=== PATIENT | female | born 1945 | race Caucasian/White ===

== ENCOUNTER 2019-12-20 10:23 | Observation (INO) | payer MEDICARE ==
[~2019-12-20] VITALS: Ht 152.4 cm; Wt 59.4 kg
[2019-12-20] MEDS ORDERED: SODIUM CHLORIDE FLUSH 10ML SYR IVF ONE (11:00)
[2019-12-20 11:21] LABS: BASOPHILS # (AUTO) 0.02 x10^3/uL (0-0.1); BASOPHILS % (AUTO) 0 % (0-1); EOSINOPHILS # (AUTO) 0.03 x10^3/uL (0-0.4); EOSINOPHILS % (AUTO) 0 % (1-7); LYMPHOCYTES % (AUTO) 27 % (22-44); MD NO; MEAN CORPUSCULAR HEMOGLOBIN 28.9 pg (27.0-34.8); MEAN CORPUSCULAR HGB CONC 32.4 g/dL (32.4-35.8); MEAN CORPUSCULAR VOLUME 89.2 fL (80-100); MONOCYTES # (AUTO) 0.55 x10^3/uL (0.2-0.8); MONOCYTES % (AUTO) 9 % (2-9); NEUTROPHILS # (AUTO) 4.11 x10^3/uL (1.8-6.8); NEUTROPHILS % (AUTO) 64 % (42-75); PLATELET COUNT 319 x10^3/uL (130-400); RED BLOOD COUNT 4.48 x10^6/uL (3.82-5.3); RED CELL DISTRIBUTION WIDTH 14.4 % (9.6-15.2)
--- NOTE | 2019-12-20 11:22 | NUR ---
PT BIB SON FOR EXPRESSIVE APHASIA STARTING AT [facility] 0100AM LAST NIGHT. PT HAS HX OF RECENT STOKE X1 MONTH AGO. PT PROTECTING OWN AIRWAY WELL, A&Ox4, VSS. NO UNILATERAL WEAKNESS NOTED, STEADY GAIT. IV STARTED, LABS DRAWN. PT PLACED ON MONITORS. WILL COLLECT URINE WHEN PT ABLE TO URINATE. CONT TO MONITOR.
[2019-12-20 11:31] LABS: ALBUMIN 3.4 g/dL (3.4-5.0); ANION GAP 6 mmol/L (5-15); CALCIUM 8.9 mg/dL (8.5-10.1); CHLORIDE 110 mmol/L (98-107); CREATININE 0.82 mg/dL (0.55-1.02)
[2019-12-20 11:35] LABS: TROPONIN I < 0.015 ng/mL (0.000-0.045)
--- NOTE | 2019-12-20 12:07 | NUR ---
PT RESTING IN BED, FAMILY AT BEDSIDE. DENIES NEEDS. AWAITING CT. PT REMAINS ON MONITORS. PT AWARE NEEDS U/A. CONT TO MONITOR.
--- NOTE | 2019-12-20 13:03 | NUR ---
PT UP TO RR, URINE SAMPLE COLLECTED AND SENT TO LAB. PT AWARE OF POC, TO BE [facility] ADMIT. PT REMAINS ON MONITORS, NO DISTRESS NOTED. NO CHANGE TO NEURO STATUS. CONT TO MONITOR.
--- NOTE | 2019-12-20 13:13 | NUR ---
REPORT GIVEN TO NIECY LOPEZ. PT TO TRANSFER TO [facility] [id number].
[2019-12-20 13:20] LABS: MICROSCOPIC INDICATED
[2019-12-20] MEDS ORDERED: CEFTRIAXONE PMX 1GM/50ML 50 ML IV SCH (14:00)
[2019-12-20] MEDS ORDERED: DOCUSATE 100 MG CAPSULE PO PRN (14:00)
[2019-12-20] MEDS ORDERED: SODIUM CHLORIDE FLUSH 10ML SYR IVF PRN (14:00)
[2019-12-20] MEDS ORDERED: ACETAMINOPHEN 650 MG/20.3 ML UDC PO PRN (14:00)
[2019-12-20] MEDS ORDERED: POLYETHYLENE GLYCOL 17 GM PACKET PO PRN (14:00)
[2019-12-20] MEDS ORDERED: LABETALOL 5MG/ML, 20ML IV PRN (14:00)
[2019-12-20] MEDS ORDERED: ONDANSETRON ODT 4 MG PO PRN (14:00)
[2019-12-20] MEDS ORDERED: ONDANSETRON 2MG/ML, 2ML IVPush PRN (14:00)
[2019-12-20 15:19] VITALS: BP 108/66
[2019-12-20] MEDS ORDERED: OMNIPAQUE 350 MG/ML, 75ML BOTTLE ONE (16:30)
[2019-12-20 16:33] VITALS: BP 118/71
[2019-12-20 18:07] VITALS: BP 110/75
[2019-12-20 19:44] VITALS: BP 115/60
[2019-12-20 20:07] VITALS: BP 114/68
[2019-12-20] MEDS ORDERED: ATORVASTATIN 40 MG TABLET PO SCH (21:00)
[2019-12-20 22:21] VITALS: BP 120/71
[2019-12-20] MEDS ORDERED: MELATONIN 5 MG TABLET PO ONE (22:30)
[2019-12-21] VITALS (8 sets, daily range): BP systolic 94–121; BP diastolic 59–74
[2019-12-21 05:47] LABS: CHOL/HDL RATIO 2.5; LDL/HDL RATIO 1.3 (0.5-3.0)
[2019-12-21] MEDS ORDERED: ASPIRIN 81 MG TABLET CHEW PO/NG SCH (09:00)
[2019-12-21] MEDS ORDERED: CLOPIDOGREL 75 MG TABLET PO SCH (09:00)
[2019-12-21 11:31] LABS: HCT (SEDRATE) 37.8 % (34.6-47.8)
[2019-12-21] MEDS ORDERED: CLOP75TA PO (14:09)
[2019-12-21] MEDS ORDERED: ASPI-515 PO/NG (14:09)
[2019-12-21] MEDS ORDERED: ATOR40TA78 PO (14:09)
[2019-12-21] MEDS ORDERED: CEFD300C37 PO (14:10)
== END 2019-12-21 16:55 | disposition home or self-care (01) ==
LOC: ED 11:03 → INTOOBSV 12:43 → EDIP 12:43 → 4WST 14:32
PROVIDERS: ADMIT Family Medicine; ATTEND Family Medicine
DX: R47.01 Aphasia (principal); N39.0 Urinary tract infection, site not specified; G81.94 Hemiplegia, unspecified affecting left nondominant side; Q21.1 Atrial septal defect; R29.810 Facial weakness; B96.89 Other specified bacterial agents as the cause of diseases classified elsewhere; E78.5 Hyperlipidemia, unspecified; H53.40 Unspecified visual field defects; H54.7 Unspecified visual loss; I67.2 Cerebral atherosclerosis; J45.909 Unspecified asthma, uncomplicated; R73.03 Prediabetes; Z79.899 Other long term (current) drug therapy; Z86.73 Personal history of transient ischemic attack (TIA), and cerebral infarction without residual deficits
CPT/HCPCS: 36415; 70450; 70496; 70498; 70551; 80048; 80061; 81001; 82040; 83036; 84484; 85025; 85651; 87077; 87086; 87186; 92523; 93005; 93306; 96365; 97161; 97165; 99285; G0378; J0696; Q9967

== ENCOUNTER 2020-10-26 11:46 | Day surgery (SDC) | payer MEDICARE ==
[~2020-10-26 11:46] MED LIST: ASPI-963 PO/NG; ATOR40TA78 PO; CEFD300C37 PO; CLOP75TA PO; LIDOCAINE 2%, 20ML ONE
== END 2020-10-26 13:20 | disposition home or self-care (01) ==
LOC: CACL 11:46
PROVIDERS: ATTEND Internal Medicine Clinical Cardiac Electrophysiology
DX: I63.9 Cerebral infarction, unspecified (principal); J44.9 Chronic obstructive pulmonary disease, unspecified; Z79.899 Other long term (current) drug therapy
CPT/HCPCS: 33285; C1764